=== PATIENT | female | born 1935 | race Two or more races ===

== ENCOUNTER 2019-05-14 10:18 | Outpatient (CLI) | payer MEDICARE, OTHER ==
--- NOTE | 2019-05-14 15:15 | Consultation ---
DATE OF CONSULTATION: 05/14/2019 CHIEF COMPLAINT: Referral for colonoscopy, past history of colon polyps, chronic GERD. PAST MEDICAL HISTORY: 1. Hypertension. 2. GERD. 3. History of colonic polyps. PAST SURGICAL HISTORY: None. MEDICATIONS: . FAMILY HISTORY: Sister had colon cancer. Brother had pancreatic cancer. SOCIAL HISTORY: The patient denies any tobacco, alcohol, or drug abuse. ALLERGIES: No known drug allergies. REVIEW OF SYSTEMS: A 10-point review of systems was performed and pertinent positives in HPI. PHYSICAL EXAMINATION: GENERAL: This is a well-developed female in no acute distress. HEENT: Normocephalic and atraumatic. Sclerae anicteric. NECK: Supple. No evidence of obvious lymphadenopathy. CARDIOVASCULAR: Regular rate and rhythm. Plus S1 and S2. No obvious murmur. LUNGS: Clear to auscultation bilaterally. ABDOMEN: Positive bowel sounds. Soft and nontender. No rebound. No guarding. No peritoneal sign. EXTREMITIES: No cyanosis, clubbing, edema. ASSESSMENT AND PLAN: The patient is an 83-year-old female referred to us for colonoscopy given prior history of colon polyps and last colonoscopy many years ago. Also, the patient has chronic GERD symptoms that needs to be evaluated by endoscopy. The patient was given instruction for the colonoscopy. Risks and benefits of procedure were explained to her and she agreed to it. Daughter was present in this interview and in this consultation. Plan to schedule her for endoscopy and colonoscopy when the authorization is obtained. Praveen Vaz M.D. DR: Basil JOB#: [id number] CC:
[2019-05-14] MEDS ORDERED: CALCIUM500 M3 PO (16:25)
[2019-05-14] MEDS ORDERED: PROPRANOLOL HCL10 MG ORAL (16:25)
[2019-05-14] MEDS ORDERED: LORATADINE10 M2 PO (16:25)
[2019-05-14] MEDS ORDERED: ENALAPRIL MALEAT5 MG ORAL (16:25)
== END 2019-05-14 14:18 | disposition home or self-care (01) ==
LOC: PAN 10:18
DX: K21.9 Gastro-esophageal reflux disease without esophagitis (principal); Z86.010 Personal history of colon polyps; I10 Essential (primary) hypertension; Z80.0 Family history of malignant neoplasm of digestive organs

== ENCOUNTER 2020-02-11 10:18 | Outpatient (CLI) | payer MEDICARE, OTHER ==
[~2020-02-11 10:18] MED LIST: CALCIUM500 M3 PO; ENALAPRIL MALEAT5 MG ORAL; LORATADINE10 M2 PO; PROPRANOLOL HCL10 MG ORAL
--- NOTE | 2020-02-11 10:29 | General Progress Note ---
Subjective ROS Limited/Unobtainable: Yes Allergies: Coded Allergies: No Known Allergies (Unverified , 05/14/19) Objective General Appearance: alert EENT: normal ENT inspection Neck: supple Cardiovascular: normal rate Respiratory/Chest: decreased breath sounds Abdomen: normal bowel sounds, non tender, soft Extremities: non-tender Assessment/Plan Assessment/Plan: 1. Hypertension. 2. GERD. 3. History of colonic polyps plan colonoscopy Praveen Vaz MD Feb 11, 2020 10:29
== END 2020-02-11 12:18 | disposition home or self-care (01) ==
LOC: PAN 10:18
DX: K21.9 Gastro-esophageal reflux disease without esophagitis (principal); I10 Essential (primary) hypertension; Z86.010 Personal history of colon polyps
CPT/HCPCS: 99212

== ENCOUNTER → 2020-02-21 | Day surgery (SDC) | payer MEDICARE, OTHER ==
[~2020-02-21] VITALS: Ht 154.9 cm; Wt 56.7 kg
[2020-02-21] VITALS (9 sets, daily range): BP systolic 109–168; BP diastolic 51–75
[~2020-02-21] MED LIST changes: +CELEBREX200 MG ORAL; +Esmolol 100mg/10ml Inj ONE; +LR 1000ml 1,000 ML IVLG SCH; +LR 1000ml ONE; +Lidocaine 1% MPF 10mg/ml 5ml ONE; +OYSTER SHELL C500 MG PO; +VIT B PO
--- NOTE | 2020-02-21 10:37 | Pre-Procedure Note/Attestation ---
Pre-Procedure Note/Attestation Complete Prior to Procedure Planned Procedure: not applicable Procedure Narrative: esophagogastroduodenoscopy and colonoscopy Indications for Procedure Pre-Operative Diagnosis: gerd, screening colon Attestation I attest that I discussed the nature of the procedure; its benefits; risks and complications; and alternatives (and the risks and benefits of such al ternatives), prior to the procedure, with the patient (or the patient's legal traffic representative). I attest that, if there was a reasonable possibility of needing a blood transfusion, the patient (or the patient's legal traffic representative) was given the [facility] standardized written summary, pursuant to the [place] Blood Safety Act ([place] Health and Safety Code # 1645, as amended). I attest that I re-evaluated the patient just prior to the surgery and that there has been no change in the patient's H&P, except as documented below: Praveen Vaz MD Feb 21, 2020 10:37
--- NOTE | 2020-02-21 10:38 | Short Stay Surgery H&P ---
History of Present Illness History of Present Illness Chief Complaint see office note HPI Adrienne Garcia is a 84 year old female who was admitted on for Gerd,Colon Screening Patient History Allergies: Coded Allergies: No Known Allergies (Unverified , 05/14/19) Medication History Scheduled Calcium Carbonate (Calcium), 500 MG PO DAILY, (Reported) Enalapril Maleate* (Enalapril Maleate*), 5 MG ORAL EVERY 12 HOURS, (Reported) Propranolol Hcl* (Inderal*), 10 MG ORAL THREE TIMES A DAY, (Reported) Miscellaneous Medications Loratadine (Claritin*), 10 MG PO, (Reported) Physical Exam Vital Signs Last Vital Signs Date Time Temp Pulse Resp B/P (MAP) Pulse Ox O2 Delivery O2 Flow Rate FiO2 02/21/20 09:59 98.0 81 18 168/75 98 Room Air Plan Attestation Are the patient's medical conditions optimized for surgery? Praveen Vaz MD Feb 21, 2020 10:38
--- NOTE | 2020-02-21 11:16 | Endoscopy Procedure Note ---
Endoscopy Procedure Note General Indication for Procedure: screening colon, GERD Procedures Performed: EGD, colonoscopy Operative Findings/Diagnosis: gastritis, hemorrhoids Specimen: yes Pt Tolerated Procedure Well: Yes Estimated Blood Loss: none Anesthesia Anesthesiologist: jelani Anesthesia: MAC Inserted Devices Implant(s) used?: No Quality Quality of Bowel Preparation: Good Did scope reach the cecum?: Yes Was there any complications?: No GI Core Measures 50 yrs or older w/o bx or poly: No 10yrs. F/U recommended: Yes If not recommended, why?: Above average risk 18 years or older w/prev. colo: No Praveen Vaz MD Feb 21, 2020 11:16
--- NOTE | 2020-02-21 11:49 | Anethesia Preoperative Eval ---
Anesthesia Pre-op PMH/ROS General Date of Evaluation: Feb 21, 2020 Time of Evaluation: 11:00 Anesthesiologist: johnie ASA Score: ASA 2 Mallampati Score Class I : Soft palate, uvula, fauces, pillars visible Class II: Soft palate, uvula, fauces visible Class III: Soft palate, base of uvula visible Class IV: Only hard plate visible Mallampati Classification: Class II Surgeon: christine Diagnosis: screen Surgical Procedure: egd/colon Anesthesia History: none Family History: no anesthesia problems Allergies: Coded Allergies: No Known Allergies (Unverified , 05/14/19) Medications: see eMAR Patient NPO?: Yes NPO Date: Feb 21, 2020 NPO Time: 00:01 Past Medical History Cardiovascular: Reports: HTN; Denies: CAD, CO, valve dz, arrhythmia, other Pulmonary: Denies: asthma, COPD, LIZZY, other Gastrointestinal/Genitourinary: Reports: GERD; Denies: CRI, ESRD, other Neurologic/Psychiatric: Denies: dementia, CVA, depression/anxiety, TIA, other Endocrine: Denies: DM, hypothyroidism, steroids, other HEENT: Denies: cataract (L), cataract (R), glaucoma, [place] (L), [place] (R), other Hematology/Immune: Denies: anemia, DVT, bleeding disorder, other Musculoskeletal/Integumentary: Denies: OA, RA, DJD, DDD, edema, other PSxH Narrative: unknown Anesthesia Pre-op Phys. Exam Physician Exam Last Vital Signs Date Time Temp Pulse Resp B/P (MAP) Pulse Ox O2 Delivery O2 Flow Rate FiO2 02/21/20 10:36 Room Air 02/21/20 09:59 98.0 81 18 168/75 98 Constitutional: NAD Neurologic: CN 2-12 intact Cardiovascular: RRR Respiratory: CTA Gastrointestinal: S/NT/ND Airway Exam Mallampati Classification 2 Mallampati Score: Class II MO: full Neck: flexible ROM: full Dentures: no upper, no lower Anesthesia Pre-op A/P Studies Pre-op Studies: EKG - sr Risk Assessment & Plan Assessment: covid neg Plan: gerd Status Change Before Surgery: No Pre-Antibiotics Drug: none Cristiana Goode CRNA Feb 21, 2020 11:48
--- NOTE | 2020-02-21 11:49 | Immediate Post-Op Evaluation ---
Immediate Post-Op Evalulation Immediate Post-Op Evalulation Procedure: EGD colonoscopy Date of Evaluation: Feb 21, 2020 Time of Evaluation: 11:49 IV Fluids: 800 Blood Pressure Systolic: 113 Blood Pressure Diastolic: 57 Pulse Rate: 87 Respiratory Rate: 14 O2 Sat by Pulse Oximetry: 99 Temperature (Fahrenheit): 98.8 Nausea: No Vomiting: No Complications none Patient Status: awake, reacts, patent Hydration Status: adequate Drug: none Cristiana Goode CRNA Feb 21, 2020 11:49
--- NOTE | 2020-02-21 12:34 | 48 Hour Post Anesthesia Eval ---
Post Anesthesia Evaluation Procedure: EGD colonoscopy Date of Evaluation: Feb 21, 2020 Time of Evaluation: 12:34 Blood Pressure Systolic: 130 0: 68 Pulse Rate: 70 Respiratory Rate: 14 Temperature (Fahrenheit): 97.8 Airway: patent Nausea: No Vomiting: No Hydration Status: adequate Cardiopulmonary Status: stable Mental Status/LOC: patient returned to baseline Post-Anesthesia Complications: none Follow-up care needed: N/A Cristiana Goode CRNA Feb 21, 2020 12:34
--- NOTE | 2020-02-21 13:00 | Procedure Note ---
DATE OF PROCEDURE: 02/21/2020 SURGEON: Praveen Vaz MD. PROCEDURE: Upper endoscopy with biopsy and colonoscopy with biopsy and snare polypectomy. ANESTHESIA: Per TRAVELING STOREKEEPER, . INSTRUMENT: Olympus adult flexible endoscope and colonoscope. INDICATION: Screening colonoscopy evaluation, abdominal pain, and chronic GERD. REASON FOR PROCEDURE: The procedure, risks, benefits, and possible consequences, including hemorrhage, aspiration, perforation and infection, and alternative treatments, were explained to the patient/legal guardian by Dr. Praveen Vaz and the patient/legal guardian understood and accepted these risks. PROCEDURE IN DETAIL: After informed consent was obtained and the patient was adequately sedated, Olympus upper endoscope was advanced from mouth into the second portion of duodenum and retroflexion was performed in the stomach. The patient had evidence of diffuse gastritis. Random biopsy from antrum was obtained to rule out H. pylori infection. At this time, the upper endoscope was retrieved. The patient was turned over for colonoscopy. First, rectal exam was performed, which was positive for internal hemorrhoids. Then the scope was advanced from the rectum into the cecum documented by appendiceal orifice, ileocecal valve, and right upper quadrant palpation. Quality of prep was good. The patient had total of 9 polyps, 2 in the cecum, 3 in ascending, 3 in transverse and 1 in the sigmoid colon. The largest one was in the sigmoid, measured roughly about 6 mm, removed with a cold snare polypectomy technique. The rest of them were removed mostly with the biopsy forceps technique. Retroflexion of rectum was performed showed evidence of internal hemorrhoids. SUMMARY OF FINDINGS: 1. Gastritis. 2. Internal hemorrhoids. 3. Total of 9 polyps removed, see above for details. RECOMMENDATIONS: Follow path. We will recommend repeat colonoscopy in one year given this number of polyps. Praveen Vaz M.D. DR: CADE JOB#: [id number] CC:
== END | disposition home or self-care (01) ==
LOC: GAS 09:19
DX: Z12.11 Encounter for screening for malignant neoplasm of colon (principal); R10.9 Unspecified abdominal pain; K21.9 Gastro-esophageal reflux disease without esophagitis; K64.8 Other hemorrhoids; K63.5 Polyp of colon; K29.70 Gastritis, unspecified, without bleeding; Z79.899 Other long term (current) drug therapy; I10 Essential (primary) hypertension; K29.50 Unspecified chronic gastritis without bleeding; D12.2 Benign neoplasm of ascending colon; D12.0 Benign neoplasm of cecum; D12.5 Benign neoplasm of sigmoid colon; D12.3 Benign neoplasm of transverse colon
CPT/HCPCS: 43239; 45380; 45385; 93005; 94003; J2704; J7120; U0002; 94150

== ENCOUNTER 2020-03-04 12:35 | Outpatient (CLI) | payer MEDICARE, OTHER ==
[~2020-03-04 12:35] MED LIST changes: -Esmolol 100mg/10ml Inj ONE; -LR 1000ml 1,000 ML IVLG SCH; -LR 1000ml ONE; -Lidocaine 1% MPF 10mg/ml 5ml ONE
--- NOTE | 2020-03-04 12:48 | General Progress Note ---
Subjective ROS Limited/Unobtainable: Yes Allergies: Coded Allergies: No Known Allergies (Unverified , 05/14/19) Objective General Appearance: alert EENT: normal ENT inspection Neck: supple Cardiovascular: normal rate Respiratory/Chest: lungs clear Abdomen: normal bowel sounds, non tender, soft Extremities: non-tender Assessment/Plan Assessment/Plan: SUMMARY OF FINDINGS: 1. Gastritis. 2. Internal hemorrhoids. 3. Total of 9 polyps removed, see above for details. repeat colon in one year add ppi rtc 3 months Praveen Vaz MD Mar 04, 2020 12:48
== END 2020-03-04 14:35 | disposition home or self-care (01) ==
LOC: PAN 12:35
DX: K29.70 Gastritis, unspecified, without bleeding (principal); K64.8 Other hemorrhoids; K63.5 Polyp of colon
CPT/HCPCS: 99212

== ENCOUNTER 2020-06-01 13:08 | Outpatient (CLI) | payer MEDICARE, OTHER ==
--- NOTE | 2020-06-01 15:10 | General Progress Note ---
Subjective ROS Limited/Unobtainable: Yes Allergies: Coded Allergies: No Known Allergies (Unverified , 05/14/19) Objective General Appearance: alert EENT: normal ENT inspection Neck: supple Cardiovascular: normal rate Respiratory/Chest: lungs clear Abdomen: normal bowel sounds, non tender, soft Extremities: non-tender Assessment/Plan Assessment/Plan: Assessment/Plan Assessment/Plan: SUMMARY OF FINDINGS: 1. Gastritis. 2. Internal hemorrhoids. 3. Total of 9 polyps removed, see above for details. repeat colon in one year>>>so feb 2021 Praveen Vaz MD Jun 01, 2020 15:10
== END 2020-06-01 15:08 | disposition home or self-care (01) ==
LOC: PAN 13:08
DX: K29.70 Gastritis, unspecified, without bleeding (principal); K64.8 Other hemorrhoids; K63.5 Polyp of colon
CPT/HCPCS: 99212